=== PATIENT | male | born 1945 | race Caucasian/White ===

== ENCOUNTER 2018-04-11 12:13 | Emergency (ER) | payer MEDICARE, OTHER ==
[2018-04-11 13:22] LABS: ADD MAN DIFF? NO
[2018-04-11 13:46] LABS: BASOPHILS % 0.5 % (0.0-2.0); EOSINOPHILS # 0.1 10^3/ul (0.0-0.5); EOSINOPHILS % 1.7 % (0.0-7.0); HEMATOCRIT 34.8 % (42.0-52.0); HEMOGLOBIN 10.4 g/dl (14.0-18.0); LYMPHOCYTES # 0.7 10^3/ul (0.8-2.9); MEAN CORPUSCULAR HEMOGLOBIN 29.9 pg (29.0-33.0); MEAN CORPUSCULAR HGB CONC 29.9 g/dl (32.0-37.0); MEAN PLATELET VOLUME 10.2 fl (7.4-10.4); MONOCYTE # 0.6 10^3/ul (0.3-0.9); MONOCYTES % 8.7 % (0.0-11.0); NEUTROPHIL # 4.9 10^3/ul (1.6-7.5); NEUTROPHILS % 77.8 % (39.0-77.0); PLATELET COUNT 136 10^3/UL (140-415); RED BLOOD COUNT 3.48 10^6/ul (4.70-6.10); RED CELL DISTRIBUTION WIDTH 17.1 % (11.5-14.5)
[2018-04-11 13:46] LABS: WHITE BLOOD COUNT 6.3 10^3/ul (4.8-10.8)
[2018-04-11 14:07] LABS: ANION GAP 20 (5-13); BLOOD UREA NITROGEN 67 mg/dl (7-20); CALCIUM 9.2 mg/dl (8.4-10.2); CARBON DIOXIDE 28 mmol/L (21-31); CHLORIDE 96 mmol/L (97-110); GLUCOSE 102 mg/dl (70-220); POTASSIUM 4.7 mmol/L (3.5-5.1); SODIUM 144 mmol/L (135-144)
[2018-04-11] MEDS: CEFEPIME HCL 1 GM VIAL IM (15:43)
== END 2018-04-11 17:02 | disposition home or self-care (01) ==
LOC: E/R 12:13
DX: N18.6 End stage renal disease (principal); J18.1 Lobar pneumonia, unspecified organism; I25.10 Atherosclerotic heart disease of native coronary artery without angina pectoris; E11.22 Type 2 diabetes mellitus with diabetic chronic kidney disease; I12.0 Hypertensive chronic kidney disease with stage 5 chronic kidney disease or end stage renal disease; I50.9 Heart failure, unspecified; I11.0 Hypertensive heart disease with heart failure; Z79.01 Long term (current) use of anticoagulants; Z95.1 Presence of aortocoronary bypass graft; Z85.038 Personal history of other malignant neoplasm of large intestine; Z79.82 Long term (current) use of aspirin; Z79.4 Long term (current) use of insulin; Z86.73 Personal history of transient ischemic attack (TIA), and cerebral infarction without residual deficits
CPT/HCPCS: 71045; 80048; 85025; 93005; 96372; 99285-25

== ENCOUNTER 2018-04-13 15:33 | Inpatient (IN) | payer MEDICARE, OTHER ==
[~2018-04-13 15:33] MED LIST: ETOMIDATE 20 MG INJ; ROCURONIUM 50 MG INJ
[2018-04-13] MEDS: SOD CHLORIDE 0.9% 500 ML IV ×2 (15:40→22:57)
[2018-04-13] MEDS: CALCIUM GLUCONATE 10% 1 GM in DEXTROSE 5% 100 ML IVPB (15:50)
[2018-04-13 15:56] LABS: ADD MAN DIFF? NO
[2018-04-13] MEDS: ETOMIDATE 20 MG INJ IV (15:56)
[2018-04-13] MEDS: ROCURONIUM 50 MG INJ IV (15:56)
[2018-04-13 15:57] LABS: WHITE BLOOD COUNT 6.4 10^3/ul (4.8-10.8)
[2018-04-13 15:57] LABS: BASOPHILS % 0.3 % (0.0-2.0); EOSINOPHILS # 0.1 10^3/ul (0.0-0.5); EOSINOPHILS % 1.7 % (0.0-7.0); HEMATOCRIT 32.7 % (42.0-52.0); HEMOGLOBIN 10.2 g/dl (14.0-18.0); LYMPHOCYTES # 0.6 10^3/ul (0.8-2.9); LYMPHOCYTES % 9.5 % (15.0-51.0); MEAN CORPUSCULAR HEMOGLOBIN 31.3 pg (29.0-33.0); MEAN CORPUSCULAR HGB CONC 31.2 g/dl (32.0-37.0); MEAN CORPUSCULAR VOLUME 100.3 fl (82.0-101.0); MEAN PLATELET VOLUME 10.4 fl (7.4-10.4); MONOCYTE # 0.6 10^3/ul (0.3-0.9); MONOCYTES % 9.9 % (0.0-11.0); NEUTROPHILS % 78.3 % (39.0-77.0); PLATELET COUNT 100 10^3/UL (140-415); RED BLOOD COUNT 3.26 10^6/ul (4.70-6.10); RED CELL DISTRIBUTION WIDTH 16.9 % (11.5-14.5)
[2018-04-13] MEDS: CEFEPIME 2GM/50 ML (PMX) 50 ML IVPB (16:15)
[2018-04-13 16:16] LABS: INR 1.06; PROTIME 13.9 Sec (11.9-14.9); PT RATIO 1.1
[2018-04-13 16:17] LABS: PARTIAL THROMBOPLASTIN TIME 27.1 Sec (23.0-35.0)
[2018-04-13 16:22] LABS: ALANINE AMINOTRANSFERASE 17 IU/L (13-69); ALBUMIN 3.9 g/dl (3.3-4.9); ALBUMIN/GLOBULIN RATIO 0.97; ALKALINE PHOSPHATASE 66 IU/L (42-121); ANION GAP 21 (5-13); ASPARTATE AMINO TRANSFERASE 35 IU/L (15-46); BILIRUBIN,INDIRECT 0.1 mg/dl (0-1.1); BILIRUBIN,TOTAL 0.1 mg/dl (0.2-1.3); BLOOD UREA NITROGEN 96 mg/dl (7-20); CALCIUM 9.5 mg/dl (8.4-10.2); CARBON DIOXIDE 24 mmol/L (21-31); CHLORIDE 101 mmol/L (97-110); GLUCOSE 145 mg/dl (70-220); SODIUM 146 mmol/L (135-144); TOTAL PROTEIN 7.9 g/dl (6.1-8.1)
[2018-04-13 16:31] LABS: CREATININE 10.43 mg/dl (0.61-1.24)
[2018-04-13 16:37] LABS: TROPONIN-I 0.148 ng/ml (0.000-0.120)
[2018-04-13 16:42] LABS: FREE THYROXINE INDEX (Calc) 2.19 ug/ml (0.65-3.89); T3 UPTAKE 40.6 % (23.5-40.5); T4 (THYROXINE) 5.4 ug/dl (5.5-11.0)
[2018-04-13 17:03] LABS: AADO2 Arterial 142.4 mmHg (7.0-24.0); Allen Test ACCEPTAB; Arterial Base Excess -0.1 mmol/L (-3.0-3); Arterial COHb 0.2 % (0.0-3.0); Arterial Fraction of Oxyhgb 96.5 % (93.0-99.0); Arterial HCO3 23.7 mmol/L (22.0-26.0); Arterial MetHb 0.3 % (0.0-1.5); Arterial pCO2 35.4 mmhg (35-45); MODE VENT - AC; Site Left Radial
[2018-04-13] MEDS: MIDAZOLAM (DRIP) 50 mg/50 mL 50 ML IV (17:11)
[2018-04-13 17:19] LABS: ADD UMIC YES; UR AMORPHOUS CRYSTAL MANY /HPF (NONE SEEN); UR ASCORBIC ACID NEGATIVE (NEGATIVE); UR BACTERIA FEW /HPF (NONE SEEN); UR BILIRUBIN (Dip) NEGATIVE (NEGATIVE); UR BLOOD (Dip) 2+ mg/dL (NEGATIVE); UR CLARITY CLOUDY (CLEAR); UR COLOR AMBER (YELLOW); UR GLUCOSE (Dip) 1+ mg/dL (NEGATIVE); UR KETONES (Dip) NEGATIVE (NEGATIVE); UR LEUKOCYTE ESTERASE (Dip) 2+ Leu/ul (NEGATIVE); UR NITRITE (Dip) NEGATIVE (NEGATIVE); UR RBC 7 /HPF (0-5); UR SPECIFIC GRAVITY (Dip) 1.016 (1.003-1.030); UR TOTAL PROTEIN (Dip) 2+ mg/dl (NEGATIVE); UR UROBILINOGEN (Dip) NEGATIVE (NEGATIVE); UR WBC 37 /HPF (0-5)
[2018-04-13] MEDS ORDERED: VANCOMYCIN IV PER PHARMACY XX (18:30)
[2018-04-13] MEDS ORDERED: ACETAMINOPHEN 650MG/20.3ML CUP PO (18:30)
[2018-04-13] MEDS ORDERED: MAGNESIUM HYDROXIDE 30ML CUP PO (18:30)
[2018-04-13] MEDS ORDERED: BISACODYL 10 MG SUPP PR (18:30)
[2018-04-13] MEDS ORDERED: morphine 2 MG INJ IV (18:30)
[2018-04-13] MEDS ORDERED: ALBUTEROL/IPRATROPIUM (NEB) 3 ML AMP NEB (18:30)
[2018-04-13] MEDS: NORepinephrine 8MG/250 ML (PMX 250 ML IV (18:31)
[2018-04-13] MEDS: VANCOMYCIN 1 GM (PMX) 250 ML IVPB (18:31)
[2018-04-13 20:03] LABS: LACTIC ACID 1.2 mmol/L (0.5-2.0)
[2018-04-13 20:19] LABS: TROPONIN-I 0.203 ng/ml (0.000-0.120)
[2018-04-13] MEDS ORDERED: DOCUSATE SODIUM 100 MG CAP PO (21:00)
[2018-04-13] MEDS: FENTAnyl (DRIP) 1000 mcg/100mL 100 ML IV (22:58)
[2018-04-13] MEDS: MEROPENEM 1 GM/50ML(PMX) 50 ML IVPB (23:16)
[2018-04-13] MEDS: VANCOMYCIN 500 MG (PMX) 100 ML IVPB (23:16)
[2018-04-13] MEDS: HEPARIN 5,000 UNIT/1 ML VIAL SC (23:17)
[2018-04-13] MEDS: SODIUM CHLORIDE 0.9% 1L BAG IV* (23:24)
[2018-04-14] MEDS ORDERED: ACETAMINOPHEN 650MG/20.3ML CUP NGT (00:30)
[2018-04-14 01:38] LABS: TROPONIN-I 0.224 ng/ml (0.000-0.120)
[2018-04-14] MEDS: MIDAZOLAM (DRIP) 50 mg/50 mL 50 ML IV ×2 (03:34→15:53)
[2018-04-14 05:12] LABS: ADD MAN DIFF? NO
[2018-04-14 05:19] LABS: WHITE BLOOD COUNT 3.2 10^3/ul (4.8-10.8)
[2018-04-14 05:19] LABS: ABNORMAL IP MESSAGE 1; BASOPHILS % 0.6 % (0.0-2.0); EOSINOPHILS # 0.1 10^3/ul (0.0-0.5); EOSINOPHILS % 2.8 % (0.0-7.0); HEMATOCRIT 26.3 % (42.0-52.0); LYMPHOCYTES # 0.5 10^3/ul (0.8-2.9); LYMPHOCYTES % 14.4 % (15.0-51.0); MEAN CORPUSCULAR HEMOGLOBIN 30.9 pg (29.0-33.0); MEAN CORPUSCULAR HGB CONC 30.4 g/dl (32.0-37.0); MEAN CORPUSCULAR VOLUME 101.5 fl (82.0-101.0); MEAN PLATELET VOLUME 10.5 fl (7.4-10.4); MONOCYTE # 0.3 10^3/ul (0.3-0.9); MONOCYTES % 9.4 % (0.0-11.0); NEUTROPHIL # 2.3 10^3/ul (1.6-7.5); NEUTROPHILS % 72.2 % (39.0-77.0); PLATELET COUNT 78 10^3/UL (140-415); POSITIVE DIFF @See below; RED BLOOD COUNT 2.59 10^6/ul (4.70-6.10); RED CELL DISTRIBUTION WIDTH 16.5 % (11.5-14.5)
[2018-04-14 05:36] LABS: ANION GAP 13 (5-13); BLOOD UREA NITROGEN 86 mg/dl (7-20); CALCIUM 8.9 mg/dl (8.4-10.2); CARBON DIOXIDE 24 mmol/L (21-31); CHLORIDE 112 mmol/L (97-110); GLUCOSE 95 mg/dl (70-220); MAGNESIUM 2.2 mg/dl (1.7-2.5); PHOSPHORUS 8.3 mg/dl (2.5-4.9); POTASSIUM 4.2 mmol/L (3.5-5.1); SODIUM 149 mmol/L (135-144)
[2018-04-14] MEDS: PANTOPRAZOLE 40 MG INJ IV (05:42)
[2018-04-14 05:46] LABS: CREATININE 10.48 mg/dl (0.61-1.24)
[2018-04-14 07:15] LABS: AADO2 Arterial 66.4 mmHg (7.0-24.0); Arterial Base Excess -1.5 mmol/L (-3.0-3); Arterial Blood Gas Oxygen Sat 98.9 mmHG (95.0-100.0); Arterial COHb 0.3 % (0.0-3.0); Arterial Fraction of Oxyhgb 98.4 % (93.0-99.0); Arterial HCO3 21.9 mmol/L (22.0-26.0); Arterial MetHb 0.2 % (0.0-1.5); Arterial pCO2 31.9 mmhg (35-45); MODE VENT - AC; Site LB
[2018-04-14] MEDS ORDERED: EPOETIN 4000 UNITS/1 ML INJ (ESRD) SC (08:00)
[2018-04-14 08:26] LABS: HEMATOCRIT 25.3 % (42.0-52.0); HEMOGLOBIN 7.9 g/dl (14.0-18.0)
[2018-04-14] MEDS ORDERED: MULTIVITAMINS THERAPEUTIC TAB PO (09:00)
[2018-04-14] MEDS ORDERED: ZINC SULFATE 220 MG CAP PO (09:00)
[2018-04-14] MEDS ORDERED: ASCORBIC ACID 500 MG TAB PO (09:00)
[2018-04-14] MEDS: ZINC SULFATE 220 MG CAP NGT (09:00)
[2018-04-14] MEDS ORDERED: VANCOMYCIN IV PER PHARMACY XX (09:00)
[2018-04-14] MEDS ORDERED: ASPIRIN (EC) 81 MG TAB PO (09:00)
[2018-04-14] MEDS: MULTIVITAMINS 30 ML CUP NGT (09:00)
[2018-04-14] MEDS: ASCORBIC ACID 500 MG TAB NGT (09:00)
[2018-04-14] MEDS: MEROPENEM 1 GM/50ML(PMX) 50 ML IVPB (11:29)
[2018-04-14] MEDS: ASPIRIN 81 MG TAB NGT (11:29)
[2018-04-14] MEDS: HEPARIN 5,000 UNIT/1 ML VIAL SC ×2 (11:38→21:00)
[2018-04-14 11:39] LABS: HEPATITIS B SURFACE ANTIGEN NEGATIVE (NEGATIVE)
[2018-04-14] MEDS: NORepinephrine 8MG/250 ML (PMX 250 ML IV (16:00)
[2018-04-14] MEDS ORDERED: MAGNESIUM HYDROXIDE 30ML CUP NGT (18:30)
[2018-04-14] MEDS: DOCUSATE SODIUM 10 MG/ML (10ML CUP) NGT (21:40)
[2018-04-15] MEDS: MIDAZOLAM (DRIP) 50 mg/50 mL 50 ML IV (05:23)
[2018-04-15] MEDS: PANTOPRAZOLE 40 MG INJ IV (05:23)
[2018-04-15 05:25] LABS: ADD MAN DIFF? NO
[2018-04-15 05:26] LABS: ABNORMAL IP MESSAGE 1; BASOPHILS % 0.6 % (0.0-2.0); EOSINOPHILS # 0.1 10^3/ul (0.0-0.5); EOSINOPHILS % 2.5 % (0.0-7.0); HEMATOCRIT 27.4 % (42.0-52.0); HEMOGLOBIN 8.3 g/dl (14.0-18.0); LYMPHOCYTES # 0.5 10^3/ul (0.8-2.9); MEAN CORPUSCULAR HEMOGLOBIN 30.5 pg (29.0-33.0); MEAN CORPUSCULAR HGB CONC 30.3 g/dl (32.0-37.0); MEAN CORPUSCULAR VOLUME 100.7 fl (82.0-101.0); MEAN PLATELET VOLUME 10.7 fl (7.4-10.4); MONOCYTE # 0.5 10^3/ul (0.3-0.9); MONOCYTES % 10.6 % (0.0-11.0); NEUTROPHIL # 3.6 10^3/ul (1.6-7.5); NEUTROPHILS % 74.9 % (39.0-77.0); PLATELET COUNT 84 10^3/UL (140-415); POSITIVE DIFF @See below; RED BLOOD COUNT 2.72 10^6/ul (4.70-6.10); RED CELL DISTRIBUTION WIDTH 16.4 % (11.5-14.5)
[2018-04-15 05:26] LABS: WHITE BLOOD COUNT 4.8 10^3/ul (4.8-10.8)
[2018-04-15 05:37] LABS: PLATELET COUNT 81 10^3/UL (140-415)
[2018-04-15 05:55] LABS: INR 1.15; PROTIME 14.8 Sec (11.9-14.9); PT RATIO 1.2
[2018-04-15 05:56] LABS: PARTIAL THROMBOPLASTIN TIME 33.4 Sec (23.0-35.0); THROMBIN TIME 17.7 SEC (13.8-19.1)
[2018-04-15 05:56] LABS: VANCOMYCIN,TROUGH 19.7 ug/ml (10.0-20.0)
[2018-04-15 06:11] LABS: ANION GAP 13 (5-13); BLOOD UREA NITROGEN 95 mg/dl (7-20); CALCIUM 9.1 mg/dl (8.4-10.2); CARBON DIOXIDE 22 mmol/L (21-31); CHLORIDE 110 mmol/L (97-110); GLUCOSE 81 mg/dl (70-220); MAGNESIUM 2.2 mg/dl (1.7-2.5); PHOSPHORUS 9.1 mg/dl (2.5-4.9); POTASSIUM 4.6 mmol/L (3.5-5.1); SODIUM 145 mmol/L (135-144)
[2018-04-15 06:27] LABS: CREATININE 11.18 mg/dl (0.61-1.24)
[2018-04-15] MEDS: HEPARIN 5,000 UNIT/1 ML VIAL SC ×2 (08:43→20:42)
[2018-04-15] MEDS: ASPIRIN 81 MG TAB NGT (09:32)
[2018-04-15] MEDS: ASCORBIC ACID 500 MG TAB NGT (09:32)
[2018-04-15] MEDS: MULTIVITAMINS 30 ML CUP NGT (09:32)
[2018-04-15] MEDS: ZINC SULFATE 220 MG CAP NGT (09:32)
[2018-04-15] MEDS: POVIDONE IODINE 10% 28.4 GM OINT TOP (12:00)
[2018-04-15] MEDS: MEROPENEM 1 GM/50ML(PMX) 50 ML IVPB (12:22)
[2018-04-15] MEDS: COLLAGENASE 5 GM (UD JAR) TOP (12:22)
[2018-04-15] MEDS: BALSAM PERU/CASTOR OIL 60 GM TUBE TOP (12:22)
[2018-04-15] MEDS: DOCUSATE SODIUM 10 MG/ML (10ML CUP) NGT (20:42)
[2018-04-15] MEDS: ALTEPLASE (CATHFLO) 2 MG INJ CATHETER (22:32)
[2018-04-16] MEDS: ALTEPLASE (CATHFLO) 2 MG INJ CATHETER (00:58)
[2018-04-16] MEDS: MIDAZOLAM (DRIP) 50 mg/50 mL 50 ML IV ×2 (01:53→22:06)
[2018-04-16 04:57] LABS: ADD MAN DIFF? NO
[2018-04-16 05:07] LABS: WHITE BLOOD COUNT 3.1 10^3/ul (4.8-10.8)
[2018-04-16 05:07] LABS: ABNORMAL IP MESSAGE 1; BASOPHILS % 0.3 % (0.0-2.0); EOSINOPHILS # 0.1 10^3/ul (0.0-0.5); EOSINOPHILS % 3.3 % (0.0-7.0); HEMOGLOBIN 7.6 g/dl (14.0-18.0); LYMPHOCYTES # 0.4 10^3/ul (0.8-2.9); LYMPHOCYTES % 12.7 % (15.0-51.0); MEAN CORPUSCULAR HEMOGLOBIN 30.9 pg (29.0-33.0); MEAN CORPUSCULAR HGB CONC 30.4 g/dl (32.0-37.0); MEAN CORPUSCULAR VOLUME 101.6 fl (82.0-101.0); MONOCYTE # 0.3 10^3/ul (0.3-0.9); MONOCYTES % 10.1 % (0.0-11.0); NEUTROPHIL # 2.2 10^3/ul (1.6-7.5); NEUTROPHILS % 72.9 % (39.0-77.0); PLATELET COUNT 57 10^3/UL (140-415); POSITIVE DIFF @See below; RED BLOOD COUNT 2.46 10^6/ul (4.70-6.10); RED CELL DISTRIBUTION WIDTH 15.6 % (11.5-14.5)
[2018-04-16] MEDS: PANTOPRAZOLE 40 MG INJ IV (05:18)
[2018-04-16 05:37] LABS: ANION GAP 17 (5-13); BLOOD UREA NITROGEN 105 mg/dl (7-20); CALCIUM 9.2 mg/dl (8.4-10.2); CARBON DIOXIDE 20 mmol/L (21-31); CHLORIDE 106 mmol/L (97-110); GLUCOSE 78 mg/dl (70-220); MAGNESIUM 2.4 mg/dl (1.7-2.5); PHOSPHORUS 9.9 mg/dl (2.5-4.9); POTASSIUM 4.5 mmol/L (3.5-5.1); SODIUM 143 mmol/L (135-144)
[2018-04-16 05:54] LABS: CREATININE 11.55 mg/dl (0.61-1.24)
[2018-04-16] MEDS: ZINC SULFATE 220 MG CAP NGT (08:10)
[2018-04-16] MEDS: MULTIVITAMINS 30 ML CUP NGT (08:11)
[2018-04-16] MEDS: COLLAGENASE 5 GM (UD JAR) TOP (08:11)
[2018-04-16] MEDS: ASPIRIN 81 MG TAB NGT (08:11)
[2018-04-16] MEDS: ASCORBIC ACID 500 MG TAB NGT (08:11)
[2018-04-16] MEDS: BALSAM PERU/CASTOR OIL 60 GM TUBE TOP (08:12)
[2018-04-16] MEDS: HEPARIN 5,000 UNIT/1 ML VIAL SC ×2 (08:12→20:53)
[2018-04-16 08:35] LABS: AADO2 Arterial 77.9 mmHg (7.0-24.0); Arterial Base Excess -6.6 mmol/L (-3.0-3); Arterial Blood Gas Oxygen Sat 98.8 mmHG (95.0-100.0); Arterial COHb 0.3 % (0.0-3.0); Arterial Fraction of Oxyhgb 98.3 % (93.0-99.0); Arterial HCO3 18.3 mmol/L (22.0-26.0); Arterial MetHb 0.2 % (0.0-1.5); Arterial pCO2 34.1 mmhg (35-45); MODE VENT - AC; Site LB
[2018-04-16] MEDS: MEROPENEM 500MG/50 ML (PMX) 50 ML IVPB (09:04)
[2018-04-16] MEDS: ONDANSETRON 4 MG INJ IV (12:12)
[2018-04-16] MEDS: SEVELAMER CARBONATE 2.4 GM PKT GTB ×2 (14:09→20:51)
[2018-04-16] MEDS: DOCUSATE SODIUM 10 MG/ML (10ML CUP) NGT (20:51)
[2018-04-16] MEDS: VANCOMYCIN 750 MG (PMX) 250 ML IVPB (21:50)
[2018-04-17 02:38] LABS: ADD MAN DIFF? NO
[2018-04-17 02:39] LABS: WHITE BLOOD COUNT 3.6 10^3/ul (4.8-10.8)
[2018-04-17 02:39] LABS: ABNORMAL IP MESSAGE 1; BASOPHILS % 0.6 % (0.0-2.0); EOSINOPHILS # 0.1 10^3/ul (0.0-0.5); EOSINOPHILS % 3.9 % (0.0-7.0); HEMATOCRIT 27.4 % (42.0-52.0); HEMOGLOBIN 8.5 g/dl (14.0-18.0); LYMPHOCYTES # 0.5 10^3/ul (0.8-2.9); LYMPHOCYTES % 13.6 % (15.0-51.0); MEAN CORPUSCULAR HEMOGLOBIN 31.3 pg (29.0-33.0); MEAN CORPUSCULAR VOLUME 100.7 fl (82.0-101.0); MEAN PLATELET VOLUME 10.6 fl (7.4-10.4); MONOCYTE # 0.5 10^3/ul (0.3-0.9); MONOCYTES % 13.6 % (0.0-11.0); NEUTROPHIL # 2.5 10^3/ul (1.6-7.5); PLATELET COUNT 73 10^3/UL (140-415); POSITIVE DIFF @See below; RED BLOOD COUNT 2.72 10^6/ul (4.70-6.10); RED CELL DISTRIBUTION WIDTH 15.5 % (11.5-14.5)
[2018-04-17 02:56] LABS: ANION GAP 21 (5-13); BLOOD UREA NITROGEN 110 mg/dl (7-20); CALCIUM 9.2 mg/dl (8.4-10.2); CARBON DIOXIDE 18 mmol/L (21-31); CHLORIDE 105 mmol/L (97-110); GLUCOSE 76 mg/dl (70-220); MAGNESIUM 2.3 mg/dl (1.7-2.5); PHOSPHORUS 10.8 mg/dl (2.5-4.9); SODIUM 144 mmol/L (135-144)
[2018-04-17 03:04] LABS: CREATININE 12.04 mg/dl (0.61-1.24)
[2018-04-17] MEDS: PANTOPRAZOLE 40 MG INJ IV (05:40)
[2018-04-17] MEDS: ASPIRIN 81 MG TAB NGT (08:21)
[2018-04-17] MEDS: ASCORBIC ACID 500 MG TAB NGT (08:21)
[2018-04-17] MEDS: ZINC SULFATE 220 MG CAP NGT (08:21)
[2018-04-17] MEDS: COLLAGENASE 5 GM (UD JAR) TOP (08:22)
[2018-04-17] MEDS: BALSAM PERU/CASTOR OIL 60 GM TUBE TOP (08:22)
[2018-04-17] MEDS: MULTIVITAMINS 30 ML CUP NGT (08:22)
[2018-04-17] MEDS: SEVELAMER CARBONATE 2.4 GM PKT GTB ×3 (08:22→20:15)
[2018-04-17] MEDS: MEROPENEM 500MG/50 ML (PMX) 50 ML IVPB (08:26)
[2018-04-17] MEDS: HEPARIN 5,000 UNIT/1 ML VIAL SC (08:28)
[2018-04-17] MEDS: LORAZEPAM 2 MG INJ IV (15:56)
[2018-04-17] MEDS: DOCUSATE SODIUM 10 MG/ML (10ML CUP) NGT (20:16)
[2018-04-18 05:17] LABS: ADD MAN DIFF? NO
[2018-04-18 05:22] LABS: WHITE BLOOD COUNT 3.2 10^3/ul (4.8-10.8)
[2018-04-18 05:22] LABS: ABNORMAL IP MESSAGE 1; BASOPHILS % 0.3 % (0.0-2.0); EOSINOPHILS # 0.2 10^3/ul (0.0-0.5); EOSINOPHILS % 5.9 % (0.0-7.0); HEMATOCRIT 26.3 % (42.0-52.0); LYMPHOCYTES # 0.4 10^3/ul (0.8-2.9); MEAN CORPUSCULAR HEMOGLOBIN 30.4 pg (29.0-33.0); MEAN CORPUSCULAR HGB CONC 30.4 g/dl (32.0-37.0); MEAN PLATELET VOLUME 10.7 fl (7.4-10.4); MONOCYTE # 0.4 10^3/ul (0.3-0.9); MONOCYTES % 12.7 % (0.0-11.0); NEUTROPHIL # 2.2 10^3/ul (1.6-7.5); NEUTROPHILS % 67.5 % (39.0-77.0); PLATELET COUNT 69 10^3/UL (140-415); POSITIVE DIFF @See below; RED BLOOD COUNT 2.63 10^6/ul (4.70-6.10)
[2018-04-18] MEDS: PANTOPRAZOLE 40 MG INJ IV (05:22)
[2018-04-18 05:45] LABS: ANION GAP 19 (5-13); CALCIUM 9.2 mg/dl (8.4-10.2); CARBON DIOXIDE 20 mmol/L (21-31); CHLORIDE 103 mmol/L (97-110); GLUCOSE 101 mg/dl (70-220); MAGNESIUM 2.4 mg/dl (1.7-2.5); POTASSIUM 5.1 mmol/L (3.5-5.1); SODIUM 142 mmol/L (135-144)
[2018-04-18 06:00] LABS: BLOOD UREA NITROGEN 121 mg/dl (7-20)
[2018-04-18] MEDS: MULTIVITAMINS 30 ML CUP NGT (10:09)
[2018-04-18] MEDS: SEVELAMER CARBONATE 2.4 GM PKT GTB ×3 (10:09→21:16)
[2018-04-18] MEDS: ZINC SULFATE 220 MG CAP NGT (10:09)
[2018-04-18] MEDS: MEROPENEM 500MG/50 ML (PMX) 50 ML IVPB (10:09)
[2018-04-18] MEDS: ASCORBIC ACID 500 MG TAB NGT (10:09)
[2018-04-18] MEDS: BALSAM PERU/CASTOR OIL 60 GM TUBE TOP (10:10)
[2018-04-18] MEDS: ASPIRIN 81 MG TAB NGT (10:10)
[2018-04-18] MEDS: COLLAGENASE 5 GM (UD JAR) TOP (10:10)
[2018-04-18] MEDS ORDERED: LORAZEPAM 1 MG TAB GTB (10:45)
[2018-04-18] MEDS: DOCUSATE SODIUM 10 MG/ML (10ML CUP) NGT (21:16)
[2018-04-19] MEDS: PANTOPRAZOLE 40 MG INJ IV (05:32)
[2018-04-19 06:01] LABS: ADD MAN DIFF? NO
[2018-04-19 06:09] LABS: ABNORMAL IP MESSAGE 1; BASOPHILS % 0.2 % (0.0-2.0); EOSINOPHILS # 0.2 10^3/ul (0.0-0.5); EOSINOPHILS % 4.9 % (0.0-7.0); HEMATOCRIT 27.1 % (42.0-52.0); HEMOGLOBIN 8.5 g/dl (14.0-18.0); LYMPHOCYTES # 0.7 10^3/ul (0.8-2.9); LYMPHOCYTES % 15.3 % (15.0-51.0); MEAN CORPUSCULAR HEMOGLOBIN 31.1 pg (29.0-33.0); MEAN CORPUSCULAR HGB CONC 31.4 g/dl (32.0-37.0); MEAN CORPUSCULAR VOLUME 99.3 fl (82.0-101.0); MEAN PLATELET VOLUME 11.2 fl (7.4-10.4); MONOCYTE # 0.5 10^3/ul (0.3-0.9); MONOCYTES % 11.7 % (0.0-11.0); NEUTROPHIL # 2.8 10^3/ul (1.6-7.5); NEUTROPHILS % 66.7 % (39.0-77.0); PLATELET COUNT 83 10^3/UL (140-415); POSITIVE DIFF @See below; RED BLOOD COUNT 2.73 10^6/ul (4.70-6.10)
[2018-04-19 06:09] LABS: WHITE BLOOD COUNT 4.3 10^3/ul (4.8-10.8)
[2018-04-19 06:44] LABS: ANION GAP 20 (5-13); CALCIUM 9.2 mg/dl (8.4-10.2); CARBON DIOXIDE 20 mmol/L (21-31); CHLORIDE 102 mmol/L (97-110); GLUCOSE 111 mg/dl (70-220); MAGNESIUM 2.5 mg/dl (1.7-2.5); PHOSPHORUS 9.9 mg/dl (2.5-4.9); SODIUM 142 mmol/L (135-144)
[2018-04-19 07:05] LABS: BLOOD UREA NITROGEN 128 mg/dl (7-20); CREATININE 12.55 mg/dl (0.61-1.24)
[2018-04-19] MEDS: COLLAGENASE 5 GM (UD JAR) TOP (09:04)
[2018-04-19] MEDS: SEVELAMER CARBONATE 2.4 GM PKT GTB ×2 (09:04→12:30)
[2018-04-19] MEDS: MULTIVITAMINS 30 ML CUP NGT (09:04)
[2018-04-19] MEDS: ZINC SULFATE 220 MG CAP NGT (09:04)
[2018-04-19] MEDS: ASCORBIC ACID 500 MG TAB NGT (09:04)
[2018-04-19] MEDS: ASPIRIN 81 MG TAB NGT (09:04)
[2018-04-19] MEDS: MEROPENEM 500MG/50 ML (PMX) 50 ML IVPB (09:05)
[2018-04-19] MEDS: BALSAM PERU/CASTOR OIL 60 GM TUBE TOP (09:05)
[2018-04-19] MEDS: morphine 4 MG/ML VIAL IV (20:04)
[2018-04-19] MEDS: morphine (DRIP) 100 MG/100 ML 100 ML IV (20:11)
[2018-04-20] MEDS ORDERED: LORAZEPAM 2 MG INJ IV (17:00)
[2018-04-20] MEDS ORDERED: HYOSCYAMINE 0.125 MG SUBL TAB SL (17:00)
[2018-04-20] MEDS: morphine (DRIP) 100 MG/100 ML 100 ML IV (17:56)
[2018-04-20] MEDS ORDERED: VITAMIN A & D 5 GM OINT PACKET TOP (21:16)
== END 2018-04-21 12:30 | disposition expired | DRG 870 ==
LOC: E/R 15:33 → ICU 17:45 → PP2 04-20 15:09 → 5EC 04-20 15:32
PROC: 0BH17EZ Insertion of Endotracheal Airway into Trachea, Via Natural or Artificial Opening (ICD-10-PCS; principal; 2018-04-13)
PROC: 5A1955Z Respiratory Ventilation, Greater than 96 Consecutive Hours (ICD-10-PCS; 2018-04-13)
PROC: 06HY33Z Insertion of Infusion Device into Lower Vein, Percutaneous Approach (ICD-10-PCS; 2018-04-13)
PROC: 05HM33Z Insertion of Infusion Device into Right Internal Jugular Vein, Percutaneous Approach (ICD-10-PCS; 2018-04-13)
PROC: 05PY33Z Removal of Infusion Device from Upper Vein, Percutaneous Approach (ICD-10-PCS; 2018-04-13)
DX: A41.9 Sepsis, unspecified organism (principal); N18.6 End stage renal disease; J18.9 Pneumonia, unspecified organism; R65.21 Severe sepsis with septic shock; J96.01 Acute respiratory failure with hypoxia; G92 Toxic encephalopathy; I13.2 Hypertensive heart and chronic kidney disease with heart failure and with stage 5 chronic kidney disease, or end stage renal disease; N39.0 Urinary tract infection, site not specified; E87.2 Acidosis; E87.0 Hyperosmolality and hypernatremia; E44.1 Mild protein-calorie malnutrition; J81.1 Chronic pulmonary edema; I50.42 Chronic combined systolic (congestive) and diastolic (congestive) heart failure; E11.22 Type 2 diabetes mellitus with diabetic chronic kidney disease; I48.91 Unspecified atrial fibrillation; D63.1 Anemia in chronic kidney disease; E78.5 Hyperlipidemia, unspecified; K21.9 Gastro-esophageal reflux disease without esophagitis; F01.50 Vascular dementia, unspecified severity, without behavioral disturbance, psychotic disturbance, mood disturbance, and anxiety; I25.10 Atherosclerotic heart disease of native coronary artery without angina pectoris; E83.39 Other disorders of phosphorus metabolism; Z66 Do not resuscitate; D69.6 Thrombocytopenia, unspecified; I25.5 Ischemic cardiomyopathy; Z85.038 Personal history of other malignant neoplasm of large intestine; Z99.2 Dependence on renal dialysis; Z86.73 Personal history of transient ischemic attack (TIA), and cerebral infarction without residual deficits; Z90.49 Acquired absence of other specified parts of digestive tract; Z91.15 Patient's noncompliance with renal dialysis; Z95.1 Presence of aortocoronary bypass graft
CPT/HCPCS: 31500; 36415; 36600; 70450; 71045; 76937; 80048; 80053; 80202; 81001; 82803; 82962; 83605; 83735; 84100; 84436; 84479; 84484; 85014; 85018; 85025; 85049; 85610; 85670; 85730; 87040; 87081; 87086; 87340; 93005; 93306; 94002; 94003; 94770; 96372; 96374; 99285-25